=== PATIENT | female | born 1955 | race Two or more races ===

== ENCOUNTER 2022-12-11 10:40 | Emergency (ER) | payer MEDICARE, BC ==
[~2022-12-11] VITALS: Ht 152.4 cm; Wt 54.5 kg
[2022-12-11] MEDS ORDERED: CALC-789 PO (11:07)
[2022-12-11] MEDS ORDERED: SERT-162 PO (11:07)
[2022-12-11] MEDS ORDERED: SUCR1TAB28 PO (11:07)
[2022-12-11] MEDS ORDERED: LEVO25TA9 PO (11:07)
[2022-12-11] MEDS ORDERED: ASPI81TA39 PO (11:07)
[2022-12-11] MEDS ORDERED: METO-558 PO (11:07)
[2022-12-11] MEDS ORDERED: PANT-31 PO (11:07)
[2022-12-11] MEDS ORDERED: CARV25TA32 PO (11:07)
[2022-12-11] MEDS ORDERED: HYDR10TA31 PO (11:07)
[2022-12-11] MEDS ORDERED: ONDA4TAB96 PO (11:07)
[2022-12-11] MEDS ORDERED: ATOR40TA28 PO (11:07)
[2022-12-11] MEDS ORDERED: LISI-663 PO (11:07)
[2022-12-11] MEDS ORDERED: AMLO5TAB66 PO (11:07)
[2022-12-11] MEDS ORDERED: LISI-893 PO (11:07)
[2022-12-11] MEDS ORDERED: ALBU18HF12 IH (11:07)
[2022-12-11] MEDS ORDERED: MAG HYDROX/AL HYDROX/SIMETH 30 ML SUSP UDCUP PO ONE (12:30)
[2022-12-11] MEDS ORDERED: FAMOTIDINE 10 MG/ML 2 ML VIAL IVP ONE (12:30)
[2022-12-11 12:36] LABS: BASOPHILS % (AUTO) 0.9 % (0.0-2.0); EOSINOPHILS % (AUTO) 0.5 % (1.0-6.0); HEMATOCRIT 37.7 % (36-46); HEMOGLOBIN 13.1 g/dL (12.0-16.0); LYMPHOCYTES # (AUTO) 1.4 K/uL (1.0-4.8); LYMPHOCYTES % (AUTO) 22.1 % (22.0-44.0); MEAN CORPUSCULAR HGB CONC 34.7 G/dL (31.0-37.0); MEAN CORPUSCULAR VOLUME 92 fL (80-100); MONOCYTES # (AUTO) 0.4 K/uL (0.1-1.0); MONOCYTES % (AUTO) 6.8 % (2.0-9.0); NEUTROPHILS # (AUTO) 4.5 K/uL (1.8-7.7); NEUTROPHILS % (AUTO) 69.7 % (40.0-70.0); PLATELET COUNT (AUTO) 217 K/uL (150-450); RED BLOOD CELL COUNT(AUTO) 4.09 MIL/uL (4.00-5.20); RED CELL DISTRIBUTION WIDTH 13.3 % (11.5-14.5)
[2022-12-11 12:49] LABS: ANION GAP 9 mmol/L (8-16); CALCIUM, TOTAL 9.5 mg/dL (8.8-10.5); CARBON DIOXIDE 27 mmol/L (22-29); CHLORIDE 104 mmol/L (98-107); CREATININE 0.89 mg/dL (0.60-1.30); GLOMERULAR FILTR. RATE CALC > 60 mL/min (>60); GLUCOSE,RANDOM 118 mg/dL (70-110); POTASSIUM 3.8 mmol/L (3.5-5.1); SODIUM SERUM 140 mmol/L (136-145); UREA NITROGEN, BLOOD 10 mg/dL (7-18)
[2022-12-11] MEDS ORDERED: SODIUM CHLORIDE 0.9% 100 ML ONE (12:55)
[2022-12-11] MEDS ORDERED: IOHEXOL 350 MG/ML 100 ML VIAL ONE (12:55)
[2022-12-11 12:56] LABS: ALANINE AMINOTRANSFERASE 24 U/L (12-78); ALBUMIN 4.4 g/dL (3.4-5.0); ALKALINE PHOSPHATASE 64 U/L (46-116); ASPARTATE AMINOTRANSFERASE 26 U/L (15-37); BILIRUBIN,TOTAL 1.3 mg/dL (0.1-1.0); LIPASE 80 U/L (73-393); TOTAL PROTEIN, SERUM 7.5 g/dL (6.4-8.2)
[2022-12-11 13:46] LABS: APPEARANCE,URINE CLEAR (CLEAR); BILIRUBIN,URINE NEGATIVE (NEGATIVE); GLUCOSE, URINE (UA) NEGATIVE (NEGATIVE); KETONES,URINE TRACE mg/dL (NEGATIVE); LEUKOCYTE ESTERASE ,URINE NEGATIVE (NEGATIVE); NITRATE,URINE NEGATIVE (NEGATIVE); OCCULT BLOOD,URINE NEGATIVE (NEGATIVE); PROTEIN,URINE NEGATIVE (NEGATIVE); SPECIFIC GRAVITIY, URINE 1.005 (1.003-1.030); UROBILINOGEN,URINE <=1.0 mg/dL (<=1.0)
[2022-12-11 14:33] VITALS: BP 148/85
== END 2022-12-11 14:49 | disposition home or self-care (01) ==
LOC: EMS 11:02
DX: R11.2 Nausea with vomiting, unspecified (principal); J45.909 Unspecified asthma, uncomplicated; E11.9 Type 2 diabetes mellitus without complications; I10 Essential (primary) hypertension; Z98.890 Other specified postprocedural states; Z88.8 Allergy status to other drugs, medicaments and biological substances
CPT/HCPCS: 99285; 74177; 96374; 80053; 81003; 82962; 83690; 85025; 36415; J3490; Q9967; J7050

== ENCOUNTER 2024-03-07 09:51 | Emergency (ER) | payer MEDICARE, BC ==
[~2024-03-07] VITALS: Ht 147.3 cm; Wt 56.8 kg
[~2024-03-07 09:51] MED LIST: ALBU18HF12 IH; AMLO5TAB66 PO; ASPI81TA39 PO; ATOR40TA28 PO; CALC-789 PO; CARV25TA32 PO; HYDR10TA31 PO; LEVO25TA9 PO; LISI-663 PO; METO-325 PO; ONDA4TAB96 PO; PANT-31 PO; SERT-162 PO; SUCR1TAB28 PO
[2024-03-07 09:59] VITALS: TEMP 98.3
[2024-03-07] MEDS ORDERED: METF-1211 PO (09:59)
[2024-03-07] MEDS ORDERED: CEPH500C2 PO (09:59)
[2024-03-07] MEDS ORDERED: AMLO10TA55 PO (09:59)
[2024-03-07] MEDS ORDERED: BUPR-562 PO (09:59)
[2024-03-07] MEDS ORDERED: BUPR-49 PO (09:59)
[2024-03-07] MEDS ORDERED: LISI40TA9 PO (09:59)
[2024-03-07] MEDS ORDERED: ATOR-2 PO (09:59)
[2024-03-07] MEDS ORDERED: MEMA10TA21 PO (09:59)
[2024-03-07] MEDS ORDERED: ATOR40TA28 PO (10:00)
[2024-03-07 11:28] LABS: BASOPHILS % (AUTO) 0.8 % (0.0-2.0); EOSINOPHILS % (AUTO) 0.5 % (1.0-6.0); HEMATOCRIT 35.5 % (36-46); HEMOGLOBIN 12.2 g/dL (12.0-16.0); LYMPHOCYTES # (AUTO) 1.3 K/uL (1.0-4.8); LYMPHOCYTES % (AUTO) 15.7 % (22.0-44.0); MEAN CORPUSCULAR HEMOGLOBIN 32.1 pg (26.0-34.0); MEAN CORPUSCULAR HGB CONC 34.2 G/dL (31.0-37.0); MEAN CORPUSCULAR VOLUME 94 fL (80-100); MONOCYTES # (AUTO) 0.5 K/uL (0.1-1.0); MONOCYTES % (AUTO) 6.7 % (2.0-9.0); NEUTROPHILS # (AUTO) 6.3 K/uL (1.8-7.7); NEUTROPHILS % (AUTO) 76.3 % (40.0-70.0); PLATELET COUNT (AUTO) 230 K/uL (150-450); RED BLOOD CELL COUNT(AUTO) 3.78 MIL/uL (4.00-5.20); RED CELL DISTRIBUTION WIDTH 12.7 % (11.5-14.5); WHITE BLOOD COUNT (AUTO) 8.2 K/uL (4.5-11.0)
[2024-03-07 11:44] LABS: TROPONIN I-HIGH SENSITIVITY 6 ng/L (<51)
[2024-03-07 11:45] LABS: ALANINE AMINOTRANSFERASE 20 U/L (12-78); ALBUMIN 3.6 g/dL (3.4-5.0); ALKALINE PHOSPHATASE 80 U/L (46-116); ANION GAP 7 mmol/L (8-16); ASPARTATE AMINOTRANSFERASE 20 U/L (15-37); BILIRUBIN,TOTAL 1.2 mg/dL (0.1-1.0); CALCIUM, TOTAL 9.1 mg/dL (8.8-10.5); CARBON DIOXIDE 27 mmol/L (22-29); CHLORIDE 103 mmol/L (98-107); CREATININE 0.82 mg/dL (0.60-1.30); GLOMERULAR FILTR. RATE CALC > 60 mL/min (>60); GLUCOSE,RANDOM 104 mg/dL (70-110); LIPASE 22 U/L (16-77); POTASSIUM 3.7 mmol/L (3.5-5.1); SODIUM SERUM 137 mmol/L (136-145); TOTAL PROTEIN, SERUM 7.1 g/dL (6.4-8.2); UREA NITROGEN, BLOOD 21 mg/dL (7-18)
[2024-03-07 13:01] LABS: APPEARANCE,URINE CLEAR (CLEAR); BILIRUBIN,URINE NEGATIVE (NEGATIVE); COLOR,URINE YELLOW (YELLOW); GLUCOSE, URINE (UA) NEGATIVE (NEGATIVE); KETONES,URINE 40-60 mg/dL (NEGATIVE); LEUKOCYTE ESTERASE ,URINE SMALL (NEGATIVE); NITRATE,URINE NEGATIVE (NEGATIVE); OCCULT BLOOD,URINE NEGATIVE (NEGATIVE); PH,URINE 5.5 (5.0-8.0); PROTEIN,URINE TRACE mg/dL (NEGATIVE); SPECIFIC GRAVITIY, URINE 1.022 (1.003-1.030)
[2024-03-07 13:06] LABS: BACTERIA,URINE None Seen /HPF (None Seen); RBC,URINE None Seen /HPF (0-2); SQUAMOUS EPITHELIAL CELL,UR Rare /LPF (None Seen)
[2024-03-07] MEDS ORDERED: CEPH-558 PO (14:20)
[2024-03-07 15:30] VITALS: BP 116/64; PULSE 88; RESP 18
== END 2024-03-07 15:58 | disposition home or self-care (01) ==
LOC: EMS 09:51
DX: N39.0 Urinary tract infection, site not specified (principal); E86.0 Dehydration; R11.0 Nausea; J45.909 Unspecified asthma, uncomplicated; E11.9 Type 2 diabetes mellitus without complications; I10 Essential (primary) hypertension; Z88.4 Allergy status to anesthetic agent; Z88.5 Allergy status to narcotic agent
CPT/HCPCS: 80053; 81001; 82962; 83690; 84484; 85025; 93005; 99284